=== PATIENT | male | born 1970 | race Caucasian/White ===

== ENCOUNTER → 2018-11-29 | Day surgery (SDC) | payer MEDICARE ==
[~2018-11-29] MED LIST: ACTOS45 MG PO; ALPRAZOLAM1 MG PO; ATORVASTATIN CA20 MG PO; BISOPROLOL FUMAR5 MG PO; CLEOCIN HCL150 MG PO; DILAUDID2 MG; DIOVAN40 MG PO; EPIPEN; GLIMEPIRIDE2 MG PO; GLIPIZIDE5 MG PO; KENALOG63 GM; LANTUS 3ML100 UNITS/ SC; LEVAQUIN500 MG PO; LIDOCAINE HCL 2% LOCAL INJ 5 ML SDV VIAL INJ ONE; LIDOCAINE PATCH TD; LISINOPRIL10 MG PO; MEDROL DOSE PACK; METFORMIN HCL500 MG PO; METOPROLOL PO; MIDAZOLAM HCL 2 MG/2 ML VIAL ONE; MORPHINE; NEXIUM PO; NORCO 10-325 T1 EACH PO; NORCO 7.5-3251 EACH PO; OMEPRAZOLE40 MG PO; PRILOSEC OTC20 MG PO; PRILOSEC40 MG PO; PROMETHAZINE HC25 M1 PO; PROPOFOL IV EMULSION 10 MG/ML 20 ML VIAL ONE; SULFAMETHOXAZO1 EAC1; SURFAK240 MG PO; TYLENOL WITH C1 EACH PO; ULTRAM 50MG50 MG PO; ZOFRAN8 MG PO; ZORVOLEX PO; ZYVOX600 MG PO; [UNRECOGNIZED DRUG - OTHER]
--- OUTSIDE RECORDS SUMMARY | 2018-11-29 08:42 | XMS REPORT ---
Author Author Joe Solorio Organization [employer] Address Unknown Phone Unavailable Care Team Providers Care Wanigan Clerk Name Role Phone Joe Solorio CP Unavailable Allergies No Known Allergies Problems Problem Type Condition Code Onset Dates Condition Status Problem Depression, unspecified depression type F32.9 Active Problem [facility] prescription opiate use Z79.891 Active Problem Chronic pain syndrome G89.4 Active Medications No Known Medications Results No Known Results Summary Purpose [employer] Submission
--- OUTSIDE RECORDS SUMMARY | 2018-11-29 08:42 | XMS REPORT | Clinical Summary ---
Author Author [employer] Organization [employer] Address Unknown Phone Unavailable Care Team Providers Care Grinder Hand Name Role Phone Camilo King DO PCP Allergies Comments Active Allergy Reactions Severity Noted Date Stated that DNA shows that he can not take med Hydrocodone Other (See 03/20/2016 Comments) Patient unknown Penicillins Other (See 03/20/2016 Comments) Medications No known medications Active Problems Not on file Social History Date Tobacco Use Types Packs/Day Years Used Former Smoker Comments: on nicotine Sex Assigned at Date Recorded Not on file Industry Job Start Date Occupation Not on file Not on file Not on file Travel End Travel History Travel Start No recent travel history available. Last Filed Vital Signs Not on file Plan of Treatment Health Maintenance Due Date Last Done Comments INFLUENZA VACCINE 11/28/2018 Results Not on fileafter 11/28/2017 Insurance Type Payer Benefit Subscriber ID Effective Phone Address Plan / Dates Group PPO CIGNA CIGNA PPO xxxxxxxxx 2015- Present Advance Directives Patient has advance care planning documents on file. For more information, ericka e contact: Celestino Allen [address] [place] [address]
--- OUTSIDE RECORDS SUMMARY | 2018-11-29 08:42 | XMS REPORT | Continuity of Care Document ---
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 Problem 05/18/2017 Rodger Harper Chronic pain syndrome Active Problem 05/18/2017 Rodgerdanita Harper Medications No Data Provided for This Section Allergies, Adverse Reactions, Alerts No Known Medication Allergies Immunizations No Data Provided for This Section Results No Data Provided for This Section Pathology Reports No Data Provided for This Section Diagnostic Reports No Data Provided for This Section Consultation Notes No Data Provided for This Section Discharge Summaries No Data Provided for This Section History and Physicals No Data Provided for This Section Vital Signs No Data Provided for This Section Encounters No Data Provided for This Section Procedures No Data Provided for This Section Assessment and Plan No Data Provided for This Section Plan of Care No Data Provided for This Section Social History No Data Provided for This Section Family History No Data Provided for This Section Advance Directives No Data Provided for This Section Functional Status No Data Provided for This Section
--- OUTSIDE RECORDS SUMMARY | 2018-11-29 08:42 | XMS REPORT ---
Author Author Joe Solorio Organization [employer] Address Unknown Phone Unavailable Care Team Providers Care Primary Teacher Name Role Phone Joe Solorio CP Unavailable Allergies No Known Allergies Problems Problem Type Condition Code Onset Dates Condition Status Problem Depression, unspecified depression type F32.9 Active Problem retirement prescription opiate use Z79.891 Active Problem Chronic pain syndrome G89.4 Active Medications No Known Medications Results No Known Results Summary Purpose [employer] Submission
--- OUTSIDE RECORDS SUMMARY | 2018-11-29 08:42 | XMS REPORT ---
Author Author [facility] Address Unknown Phone Unavailable Care Team Providers Care Biological Lab Technician Name Role Phone BENJAMIN STEWART Unavailable Unavailable Problems This patient has no known problems. Allergies, Adverse Reactions, Alerts This patient has no known allergies or adverse reactions. Medications This patient has no known medications. Results Test Description Test Time Test Comments Text Results Atomic Results Result Comments CHEST SINGLE (PORTABLE) [place] [address] Patient Name: CATALINA MUNOZ MR #: [id number] : 1970 Age/Sex: 47/M Req #: [id number] Adm Physician: BENJAMIN STEWART MD Ordered by: SHIRA WYLIE MD, MD Report #: [id number] Location: [facility] Room/Bed: [place] [address] Procedure: [id number] DX/CHEST SINGLE (PORTABLE) Exam Date: 04/12/17 Exam Time: 1105 REPORT STATUS: Signed PROCEDURE: CHEST SINGLE (PORTABLE) COMPARISON: 03/20/2012. INDICATIONS: ULCERS ON LEGS FINDINGS: LUNGS: No consolidations or edema. Calcified granuloma in the right midlung. PLEURA: No effusions or pneumothorax. HEART T MEDIASTINUM: The heart is within normal size-limits. BONES T SOFT TISSUES: No acute findings. CONCLUSION: No acute cardiopulmonary abnormality. Dictated by: Mitzi Abdi M.D. on 04/12/2017 at 12:07 Electronically approved by: Mitzi Abdi M.D. on 04/12/2017 at 12:07 Dictated By: MITZI ABDI MD 06 Transcribed By: BEATRIZ on 04/12/171206 COPY TO: SHIRA WYLIE
[2018-11-29 12:15] VITALS: BP 109/71
== END | disposition home or self-care (01) ==
LOC: OR 08:39
PROVIDERS: ATTEND Surgery
DX: K29.70 Gastritis, unspecified, without bleeding (principal); K21.9 Gastro-esophageal reflux disease without esophagitis; K44.9 Diaphragmatic hernia without obstruction or gangrene; K62.5 Hemorrhage of anus and rectum; K64.8 Other hemorrhoids; I10 Essential (primary) hypertension; E11.42 Type 2 diabetes mellitus with diabetic polyneuropathy; E29.1 Testicular hypofunction; R53.83 Other fatigue; I87.311 Chronic venous hypertension (idiopathic) with ulcer of right lower extremity; G89.4 Chronic pain syndrome; E11.3293 Type 2 diabetes mellitus with mild nonproliferative diabetic retinopathy without macular edema, bilateral; F32.9 Major depressive disorder, single episode, unspecified; F41.9 Anxiety disorder, unspecified; Z88.0 Allergy status to penicillin; Z01.810 Encounter for preprocedural cardiovascular examination; Z79.84 Long term (current) use of oral hypoglycemic drugs; Z68.37 Body mass index [BMI] 37.0-37.9, adult
CPT/HCPCS: 36415; 43239; 45378; 82948; 88305; 88312; 93005; J2001; J2250; J2704

== ENCOUNTER 2024-07-21 10:43 | Inpatient (IN) | payer MEDICARE ==
[2024-07-21] VITALS (10 sets, daily range): BP systolic 114–141; BP diastolic 60–72; PULSE 68–89; RESP 6–20; TEMP 97.4–98.1; O2SAT 93–100
[~2024-07-21] VITALS: Ht 185.4 cm; Wt 136.1 kg
[~2024-07-21 10:43] MED LIST changes: -DILAUDID2 MG; +DILAUDID2 MG PO; -LIDOCAINE HCL 2% LOCAL INJ 5 ML SDV VIAL INJ ONE; -MIDAZOLAM HCL 2 MG/2 ML VIAL ONE; -PROPOFOL IV EMULSION 10 MG/ML 20 ML VIAL ONE
[2024-07-21] MEDS: SODIUM CHLORIDE 0.9% 1000ML 1,000 ML IV STA (11:15)
[2024-07-21] MEDS: MEROPENEM 1 GM in SODIUM CHLORIDE 0.9% 100 ML IV SCH (11:15)
[2024-07-21 12:00] LABS: BASOPHILS % 0.3 % (0.0-1.0); EOSINOPHILS # (AUTO) 0.4 (0.0-0.4); EOSINOPHILS % 7.3 % (0.0-6.0); HEMATOCRIT 29.9 % (38.2-49.6); HEMOGLOBIN 9.1 g/dL (14.0-18.0); LYMPHOCYTES # (AUTO) 1.3 (1.0-3.2); LYMPHOCYTES % 22.8 % (18.0-39.1); MEAN CORPUSCULAR HEMOGLOBIN 23.8 pg (28-32); MEAN CORPUSCULAR HGB CONC 30.4 g/dL (31-35); MEAN CORPUSCULAR VOLUME 78.1 fL (81-99); MONOCYTES # (AUTO) 0.6 (0.2-0.8); MONOCYTES % 9.7 % (4.4-11.3); NEUTROPHILS # (AUTO) 3.5 (2.1-6.9); NEUTROPHILS % 59.7 % (38.7-80.0); PLATELET COUNT 278 x10e3/uL (140-360); RED BLOOD COUNT 3.83 x10e6/uL (4.3-5.7); RED CELL DISTRIBUTION WIDTH 17.5 % (11.7-14.4); WHITE BLOOD COUNT 5.89 x10e3/uL (4.8-10.8)
[2024-07-21 12:17] LABS: INR 0.92; PROTHROMBIN TIME 12.9 seconds (11.9-14.5)
[2024-07-21 12:22] LABS: INFLUENZA A AG NEGATIVE (NEGATIVE)
[2024-07-21 12:23] LABS: CORONAVIRUS COVID-19 AG NEGATIVE (NEGATIVE); INFLUENZA B AG NEGATIVE (NEGATIVE)
[2024-07-21 12:37] LABS: ANION GAP 16.6 mmol/L (8-16); CALCIUM 9.2 mg/dL (8.4-10.2); CREATININE, SERUM 0.73 mg/dL (0.72-1.25); POTASSIUM 3.6 mmol/L (3.5-5.1)
[2024-07-21 12:38] LABS: ALBUMIN 3.2 g/dL (3.5-5.0); ALBUMIN/GLOBULIN RATIO 0.7 (0.8-2.0); BILIRUBIN,TOTAL 0.3 mg/dL (0.2-1.2); TOTAL PROTEIN 7.5 g/dL (6.5-8.1); TROPONIN I 0.013 ng/mL (0-0.300)
[2024-07-21 13:01] LABS: MAGNESIUM 1.8 MG/DL (1.3-2.1)
[2024-07-21] MEDS: ALBUTEROL/IPRATROPIUM 3 ML NEB NEB SCH (13:06)
[2024-07-21] MEDS: FUROSEMIDE INJ 10 MG/ML 2 ML VIAL IV ONE ×2 (20:58→22:18)
[2024-07-21 23:40] LABS: TROPONIN I 0.006 ng/mL (0-0.300)
[2024-07-22] VITALS (12 sets, daily range): BP systolic 99–125; BP diastolic 52–65; PULSE 70–99; RESP 12–20; TEMP 97.4–98.6; O2SAT 91–99
[2024-07-22] MEDS ORDERED: HYDROMORPHONE HCL 2 MG TAB PO PRN (04:30)
[2024-07-22] MEDS: FUROSEMIDE INJ 10 MG/ML 2 ML VIAL IV SCH (05:00)
[2024-07-22 06:31] LABS: BASOPHILS % 0.6 % (0.0-1.0); EOSINOPHILS # (AUTO) 0.4 (0.0-0.4); EOSINOPHILS % 7.3 % (0.0-6.0); HEMATOCRIT 32.9 % (38.2-49.6); HEMOGLOBIN 9.5 g/dL (14.0-18.0); LYMPHOCYTES # (AUTO) 1.5 (1.0-3.2); LYMPHOCYTES % 27.4 % (18.0-39.1); MEAN CORPUSCULAR HEMOGLOBIN 23.8 pg (28-32); MEAN CORPUSCULAR HGB CONC 28.9 g/dL (31-35); MEAN CORPUSCULAR VOLUME 82.3 fL (81-99); MONOCYTES # (AUTO) 0.5 (0.2-0.8); MONOCYTES % 9.7 % (4.4-11.3); NEUTROPHILS % 54.8 % (38.7-80.0); PLATELET COUNT 259 x10e3/uL (140-360); RED CELL DISTRIBUTION WIDTH 17.7 % (11.7-14.4); WHITE BLOOD COUNT 5.37 x10e3/uL (4.8-10.8)
[2024-07-22 06:59] LABS: ALBUMIN 2.9 g/dL (3.5-5.0); ALBUMIN/GLOBULIN RATIO 0.7 (0.8-2.0); ANION GAP 15.9 mmol/L (8-16); BILIRUBIN,TOTAL 0.3 mg/dL (0.2-1.2); CALCIUM 8.6 mg/dL (8.4-10.2); CREATININE, SERUM 0.75 mg/dL (0.72-1.25); POTASSIUM 3.9 mmol/L (3.5-5.1); TOTAL PROTEIN 6.8 g/dL (6.5-8.1)
[2024-07-22 07:23] LABS: TROPONIN I 0.011 ng/mL (0-0.300)
[2024-07-22] MEDS: PANTOPRAZOLE SOD 40 MG TABEC PO SCH (08:59)
[2024-07-22] MEDS: PIOGLITAZONE HCL 45 MG TAB PO SCH (09:01)
[2024-07-22] MEDS: GLIMEPIRIDE 2 MG TAB PO SCH (09:01)
[2024-07-22] MEDS: METFORMIN HCL 500 MG TAB PO SCH (09:01)
[2024-07-22] MEDS: LISINOPRIL 20 MG TAB PO SCH (09:03)
[2024-07-22] MEDS: SODIUM CHLORIDE 0.9% 250ML 250 ML ONE (12:07)
[2024-07-22] MEDS: ALPRAZOLAM 1 MG TAB PO PRN (13:23)
[2024-07-22] MEDS: HYDROCORTISONE SOD SUCCINATE 100 MG VIAL IV ONE ×2 (13:24→18:04)
[2024-07-22] MEDS: DIPHENHYDRAMINE HCL INJ 50 MG/ML VIAL IV ONE (18:03)
[2024-07-22] MEDS ORDERED: IOPAMIDOL 370 MG/ML 100 ML INFUS..BTL INJ ONE (18:25)
[2024-07-22] MEDS: ATORVASTATIN 40 MG TAB PO SCH (21:18)
[2024-07-23] VITALS (13 sets, daily range): BP systolic 101–117; BP diastolic 49–63; PULSE 84–104; RESP 16–22; TEMP 97.5–98.1; O2SAT 94–99
[2024-07-23] MEDS: FUROSEMIDE INJ 10 MG/ML 4 ML VIAL IV SCH (06:00)
[2024-07-23 07:16] LABS: BASOPHILS % 0.2 % (0.0-1.0); EOSINOPHILS % 0.4 % (0.0-6.0); HEMATOCRIT 28.9 % (38.2-49.6); HEMOGLOBIN 8.8 g/dL (14.0-18.0); LYMPHOCYTES # (AUTO) 1.5 (1.0-3.2); LYMPHOCYTES % 16.5 % (18.0-39.1); MEAN CORPUSCULAR HEMOGLOBIN 23.8 pg (28-32); MEAN CORPUSCULAR HGB CONC 30.4 g/dL (31-35); MEAN CORPUSCULAR VOLUME 78.3 fL (81-99); MONOCYTES # (AUTO) 0.6 (0.2-0.8); MONOCYTES % 7.1 % (4.4-11.3); NEUTROPHILS # (AUTO) 6.8 (2.1-6.9); NEUTROPHILS % 75.5 % (38.7-80.0); PLATELET COUNT 286 x10e3/uL (140-360); RED BLOOD COUNT 3.69 x10e6/uL (4.3-5.7); WHITE BLOOD COUNT 8.97 x10e3/uL (4.8-10.8)
[2024-07-23 07:43] LABS: ALBUMIN 2.7 g/dL (3.5-5.0); ALBUMIN/GLOBULIN RATIO 0.7 (0.8-2.0); ANION GAP 15.9 mmol/L (8-16); BILIRUBIN,TOTAL 0.4 mg/dL (0.2-1.2); CALCIUM 8.7 mg/dL (8.4-10.2); CREATININE, SERUM 0.92 mg/dL (0.72-1.25); MAGNESIUM 1.6 MG/DL (1.3-2.1); POTASSIUM 3.9 mmol/L (3.5-5.1); TOTAL PROTEIN 6.4 g/dL (6.5-8.1)
[2024-07-24] VITALS (12 sets, daily range): BP systolic 109–132; BP diastolic 54–78; PULSE 78–115; RESP 16–22; TEMP 98.1–98.7; O2SAT 93–98
[2024-07-25] VITALS (13 sets, daily range): BP systolic 106–132; BP diastolic 52–65; PULSE 75–100; RESP 18–20; TEMP 97.6–99.1; O2SAT 94–100
[2024-07-25 07:04] LABS: BASOPHILS % 0.4 % (0.0-1.0); EOSINOPHILS # (AUTO) 0.3 (0.0-0.4); EOSINOPHILS % 5.4 % (0.0-6.0); HEMATOCRIT 29.7 % (38.2-49.6); LYMPHOCYTES # (AUTO) 1.4 (1.0-3.2); LYMPHOCYTES % 26.9 % (18.0-39.1); MEAN CORPUSCULAR HEMOGLOBIN 23.9 pg (28-32); MEAN CORPUSCULAR HGB CONC 30.3 g/dL (31-35); MEAN CORPUSCULAR VOLUME 78.8 fL (81-99); MONOCYTES # (AUTO) 0.4 (0.2-0.8); MONOCYTES % 8.1 % (4.4-11.3); NEUTROPHILS # (AUTO) 3.1 (2.1-6.9); PLATELET COUNT 236 x10e3/uL (140-360); RED BLOOD COUNT 3.77 x10e6/uL (4.3-5.7); WHITE BLOOD COUNT 5.17 x10e3/uL (4.8-10.8)
[2024-07-25 07:39] LABS: ALBUMIN/GLOBULIN RATIO 0.8 (0.8-2.0); ANION GAP 13.6 mmol/L (8-16); BILIRUBIN,TOTAL 0.6 mg/dL (0.2-1.2); CREATININE, SERUM 0.73 mg/dL (0.72-1.25); MAGNESIUM 1.3 MG/DL (1.3-2.1); POTASSIUM 3.6 mmol/L (3.5-5.1); TOTAL PROTEIN 6.6 g/dL (6.5-8.1)
[2024-07-26] VITALS (8 sets, daily range): BP systolic 98–123; BP diastolic 57–77; PULSE 76–89; RESP 18–20; TEMP 98.3–98.6; O2SAT 93–98
== END 2024-07-26 12:25 | disposition home or self-care (01) | DRG 177 ==
LOC: ER 10:52 → ERHOLD 14:04 → MED/SURG3 17:01
PROVIDERS: ADMIT Internal Medicine; ATTEND Internal Medicine
DX: J69.0 Pneumonitis due to inhalation of food and vomit (principal); I11.0 Hypertensive heart disease with heart failure; I50.33 Acute on chronic diastolic (congestive) heart failure; E11.9 Type 2 diabetes mellitus without complications; E78.5 Hyperlipidemia, unspecified; D64.9 Anemia, unspecified; G47.33 Obstructive sleep apnea (adult) (pediatric); K21.9 Gastro-esophageal reflux disease without esophagitis; F41.9 Anxiety disorder, unspecified; E66.01 Morbid (severe) obesity due to excess calories; Z68.39 Body mass index [BMI] 39.0-39.9, adult; Z11.52 Encounter for screening for COVID-19; Z79.84 Long term (current) use of oral hypoglycemic drugs; Z79.4 Long term (current) use of insulin; Z95.3 Presence of xenogenic heart valve; Z88.0 Allergy status to penicillin; Z87.891 Personal history of nicotine dependence
CPT/HCPCS: 36415; 71045; 71260; 74230; 80053; 82550; 82948; 83735; 83880; 84484; 85025; 85610; 85730; 87040; 93005; 93306; 94640; 94799; 99252; 99284; J1200; J1720; J1940; J2185; J2470; J7030; J7050; Q9967

== ENCOUNTER 2024-11-30 13:56 | Inpatient (IN) | payer MEDICARE ==
[~2024-11-30] VITALS: Ht 185.4 cm; Wt 155.1 kg
[2024-11-30 14:21] VITALS: TEMP 98.9
[2024-11-30] MEDS ORDERED: SODIUM CHLORIDE FLUSH 10 ML SYR IV PRN (14:30)
[2024-11-30 14:43] LABS: BASOPHILS % 0.3 % (0.0-1.0); EOSINOPHILS % 1.0 % (0.0-6.0); LYMPHOCYTES % 7.8 % (18.0-39.1); MONOCYTES % 5.2 % (4.4-11.3); NEUTROPHILS % 85.2 % (38.7-80.0); RED CELL DISTRIBUTION WIDTH 20.7 % (11.7-14.4)
[2024-11-30 15:04] LABS: EST GLOMERULAR FILTRATION RATE 104.0 ML/MIN (>=60)
[2024-11-30] MEDS: ONDANSETRON HCL INJ 2MG/ML 2ML 2 MG/ML VIAL IV STA (15:41)
[2024-11-30] MEDS: SODIUM CHLORIDE 0.9% 1000ML 1,000 ML IV ONE (15:42)
[2024-11-30] MEDS: ASPIRIN 81 MG CHEW TAB PO ONE (15:42)
[2024-11-30] MEDS ORDERED: EPINEPHRINE HCL SYRINGE ONE (16:05)
[2024-11-30] MEDS: DIPHENHYDRAMINE HCL INJ 50 MG/ML VIAL IV ONE (16:21)
[2024-11-30] MEDS: METHYLPREDNISOLONE SOD SUCC 125 MG/2ML VIAL IV ONE (16:22)
[2024-11-30 18:27] LABS: CORONAVIRUS COVID-19 AG NEGATIVE (NEGATIVE)
[2024-11-30] MEDS ORDERED: ONDANSETRON HCL INJ 2MG/ML 2ML 2 MG/ML VIAL IV PRN (18:30)
[2024-11-30] MEDS: CEFEPIME 2 GM in SODIUM CHLORIDE 0.9% 100 ML IV ONE (19:37)
[2024-11-30 19:38] VITALS: PULSE 90; RESP 16; O2SAT 100
[2024-11-30 20:00] VITALS: PULSE 80; RESP 12
[2024-11-30 20:20] VITALS: BP 134/64; PULSE 74; RESP 20; TEMP 98.3; O2SAT 100
[2024-11-30 21:00] VITALS: BP 134/64; PULSE 74; RESP 20; TEMP 98.3; O2SAT 100
[2024-11-30] MEDS: SODIUM CHLORIDE 0.9% 1000ML 1,000 ML IV SCH (22:12)
[2024-11-30] MEDS: Vancomycin IV 2 GM in SODIUM CHLORIDE 0.9% 250ML 250 ML IV ONE (22:44)
[2024-12-01] VITALS (10 sets, daily range): BP systolic 117–151; BP diastolic 61–123; PULSE 66–73; RESP 12–21; TEMP 97.5–98; O2SAT 92–98
[2024-12-01] MEDS ORDERED: METOPROLOL TART50 MG PO (02:17)
[2024-12-01] MEDS ORDERED: HYDROMORPHONE 1MG/1ML INJ IV PRN (05:15)
[2024-12-01] MEDS ORDERED: ALBUTEROL/IPRATROPIUM 3 ML NEB NEB PRN (05:15)
[2024-12-01 06:16] LABS: BASOPHILS % 0.1 % (0.0-1.0); EOSINOPHILS % 0.0 % (0.0-6.0); LYMPHOCYTES % 5.3 % (18.0-39.1); MONOCYTES % 1.9 % (4.4-11.3); NEUTROPHILS % 92.3 % (38.7-80.0); RED CELL DISTRIBUTION WIDTH 20.6 % (11.7-14.4)
[2024-12-01] MEDS ORDERED: Vancomycin IV 1 GM in SODIUM CHLORIDE 0.9% 250ML 250 ML IV SCH (06:30)
[2024-12-01 06:44] LABS: EST GLOMERULAR FILTRATION RATE 109.0 ML/MIN (>=60)
[2024-12-01] MEDS: METOPROLOL TARTRATE 50 MG TAB PO SCH (08:49)
[2024-12-01] MEDS: ALPRAZOLAM 1 MG TAB PO PRN (08:49)
[2024-12-01] MEDS: LISINOPRIL 10 MG TAB PO SCH (08:49)
[2024-12-01] MEDS: METFORMIN HCL 500 MG TAB PO SCH (08:49)
[2024-12-01] MEDS: PANTOPRAZOLE SOD 40 MG TABEC PO SCH (08:49)
[2024-12-01] MEDS: Vancomycin IV 1 GM in SODIUM CHLORIDE 0.9% 250ML 250 ML IV SCH (08:50)
[2024-12-01] MEDS ORDERED: METHYLPREDNISOLONE SOD SUCC 125 MG/2ML VIAL IV SCH (09:00)
[2024-12-01 09:20] LABS: PLATELET ESTIMATE ADEQUATE; PLATELET MORPHOLOGY COMMENT NORMAL
[2024-12-01] MEDS: METHYLPREDNISOLONE SOD SUCC 40 MG/ML VIAL 1ML IV SCH (09:32)
[2024-12-01] MEDS: ATORVASTATIN 20 MG TAB PO SCH (20:34)
[2024-12-01] MEDS: ALPRAZOLAM 1 MG TAB PO ONE (21:49)
[2024-12-01] MEDS: INSULIN GLARGINE 100 UNITS/ML VIAL SQ SCH (21:53)
[2024-12-02] VITALS (9 sets, daily range): BP systolic 142–151; BP diastolic 56–72; PULSE 63–74; RESP 17–20; TEMP 97.4–97.7; O2SAT 93–100
[2024-12-02 06:10] LABS: BASOPHILS % 0.1 % (0.0-1.0); EOSINOPHILS % 0.0 % (0.0-6.0); LYMPHOCYTES % 8.9 % (18.0-39.1); MONOCYTES % 4.3 % (4.4-11.3); NEUTROPHILS % 86.3 % (38.7-80.0); RED CELL DISTRIBUTION WIDTH 21.2 % (11.7-14.4)
[2024-12-02 06:40] LABS: EST GLOMERULAR FILTRATION RATE 102.0 ML/MIN (>=60)
[2024-12-02] MEDS: ALPRAZOLAM 1 MG TAB PO PRN (08:24)
[2024-12-02] MEDS: VANCOMYCIN HCL 1.25 GM in SODIUM CHLORIDE 0.9% 250ML 250 ML IV SCH (12:33)
[2024-12-03] VITALS (9 sets, daily range): BP systolic 101–176; BP diastolic 66–92; PULSE 64–87; RESP 16–20; TEMP 97.5–98.1; O2SAT 95–100
[2024-12-03 07:40] LABS: BASOPHILS % 0.2 % (0.0-1.0); EOSINOPHILS % 1.7 % (0.0-6.0); LYMPHOCYTES % 18.1 % (18.0-39.1); MONOCYTES % 8.6 % (4.4-11.3); NEUTROPHILS % 71.1 % (38.7-80.0); RED CELL DISTRIBUTION WIDTH 21.1 % (11.7-14.4)
[2024-12-03 08:05] LABS: EST GLOMERULAR FILTRATION RATE 107.0 ML/MIN (>=60)
[2024-12-03] MEDS: METHYLPREDNISOLONE SOD SUCC 40 MG/ML VIAL 1ML IV SCH (09:03)
[2024-12-03] MEDS: FUROSEMIDE INJ 10 MG/ML 2 ML VIAL IV SCH (09:03)
[2024-12-03] MEDS ORDERED: ASPIRIN CHEW81 MG PO (09:05)
[2024-12-03] MEDS ORDERED: VANCOMYCIN HCL 1.25 GM VIAL IV ONE (13:08)
[2024-12-04] VITALS (11 sets, daily range): BP systolic 134–187; BP diastolic 50–79; PULSE 62–83; RESP 12–21; TEMP 97.8–98.9; O2SAT 93–100
[2024-12-04] MEDS ORDERED: PREDNISONE 10 MG TAB PO SCH (09:00)
[2024-12-04] MEDS: PREDNISONE 20 MG TAB PO SCH (10:20)
[2024-12-05] VITALS (12 sets, daily range): BP systolic 125–168; BP diastolic 64–85; PULSE 58–72; RESP 16–22; TEMP 97.4–98.6; O2SAT 95–98
[2024-12-05 08:21] LABS: BASOPHILS % 0.2 % (0.0-1.0); EOSINOPHILS % 1.6 % (0.0-6.0); LYMPHOCYTES % 22.4 % (18.0-39.1); MONOCYTES % 7.3 % (4.4-11.3); NEUTROPHILS % 68.0 % (38.7-80.0); RED CELL DISTRIBUTION WIDTH 20.1 % (11.7-14.4)
[2024-12-05 08:51] LABS: EST GLOMERULAR FILTRATION RATE 113.0 ML/MIN (>=60)
[2024-12-05] MEDS ORDERED: FENTANYL CITRATE/PF 100MCG/2 ML INJ ONE (11:47)
[2024-12-05] MEDS ORDERED: LIDOCAINE HCL 2% LOCAL INJ 5 ML SDV VIAL INJ ONE (11:47)
[2024-12-05] MEDS ORDERED: PROPOFOL IV EMULSION 10 MG/ML 20 ML VIAL ONE (11:47)
[2024-12-05] MEDS ORDERED: SEVOFLURANE INHAL SOLN 250 ML PEN BTL ONE (11:47)
[2024-12-05] MEDS ORDERED: ACETAMINOPHEN 1000 MG/100 ML 100 ML IV ONE (12:17)
[2024-12-05] MEDS ORDERED: ONDANSETRON HCL INJ 2MG/ML 2ML 2 MG/ML VIAL ONE (12:39)
[2024-12-05] MEDS ORDERED: DEXAMETHASONE SOD PHOS INJ 4 MG/ML SDV ONE (12:39)
[2024-12-06] VITALS: BP 138/77; PULSE 70; RESP 19; TEMP 97.3; O2SAT 100
[2024-12-06 06:27] VITALS: PULSE 65; RESP 17; O2SAT 93
[2024-12-06 08:28] VITALS: BP 140/76; PULSE 65; RESP 20; TEMP 97.7; O2SAT 96
[2024-12-06 09:00] VITALS: BP 140/76; PULSE 65; RESP 20; TEMP 97.7; O2SAT 96
== END 2024-12-06 09:20 | disposition home or self-care (01) | DRG 981 ==
LOC: ER 14:25 → ERHOLD 18:19 → MED/SURG2 20:30
PROVIDERS: ADMIT Internal Medicine; ATTEND Internal Medicine
PROC: 0HRMXK3 Replacement of Right Foot Skin with Nonautologous Tissue Substitute, Full Thickness, External Approach (ICD-10-PCS; principal; 2024-12-05 12:30)
DX: J69.0 Pneumonitis due to inhalation of food and vomit (principal); I50.23 Acute on chronic systolic (congestive) heart failure; J96.01 Acute respiratory failure with hypoxia; Z68.42 Body mass index [BMI] 45.0-49.9, adult; D72.829 Elevated white blood cell count, unspecified; D64.9 Anemia, unspecified; I10 Essential (primary) hypertension; E78.5 Hyperlipidemia, unspecified; F41.9 Anxiety disorder, unspecified; I11.0 Hypertensive heart disease with heart failure; K21.9 Gastro-esophageal reflux disease without esophagitis; E66.813 Obesity, class 3; E66.01 Morbid (severe) obesity due to excess calories; M54.9 Dorsalgia, unspecified; E11.621 Type 2 diabetes mellitus with foot ulcer; L97.512 Non-pressure chronic ulcer of other part of right foot with fat layer exposed; R13.12 Dysphagia, oropharyngeal phase; E11.51 Type 2 diabetes mellitus with diabetic peripheral angiopathy without gangrene; G89.29 Other chronic pain; G47.33 Obstructive sleep apnea (adult) (pediatric); I89.0 Lymphedema, not elsewhere classified; Z95.2 Presence of prosthetic heart valve; Z11.52 Encounter for screening for COVID-19; Z88.5 Allergy status to narcotic agent; Z88.0 Allergy status to penicillin; Z79.84 Long term (current) use of oral hypoglycemic drugs; Z79.4 Long term (current) use of insulin
CPT/HCPCS: 36415; 71045; 71260; 80053; 80202; 82948; 83735; 83880; 84484; 85025; 85379; 87040; 93005; 94760; 94799; 99252; 99284; J0171; J0692; J1100; J1200; J1815; J1938; J2003; J2405; J2470; J2919; J3373; J7030; J7050; J7512; Q4104

== ENCOUNTER → 2025-01-09 | Outpatient (REF) | payer MEDICARE ==
[~2025-01-09] MED LIST changes: +ASPIRIN CHEW81 MG PO; +METOPROLOL TART50 MG PO
== END ==
LOC: DX 09:34
PROVIDERS: ATTEND Internal Medicine
DX: J69.0 Pneumonitis due to inhalation of food and vomit (principal)
CPT/HCPCS: 74230